=== PATIENT | female | born 1950 | race Caucasian/White ===

== ENCOUNTER → 2016-10-21 | Outpatient (CLI) | payer BC ==
[2015-02-20 12:25] VITALS: BP 110/52
[~2016-10-21] MED LIST: DOCU-109 PO; ESTR1TAB3 PO; NAPR500T3 PO; OMEP40CA5 PO; ONDA4TAB10 SL; OXYC-323 PO; PROP20TA PO; VENTOLIN HFA18 GM INH
--- NOTE | 2016-10-21 14:00 | RAD ---
EXAM: MAMMO JOSE SCREENING BILATERAL HISTORY: Routine Screening. COMPARISON: 10/26/2014 Standard mammographic views are obtained of the bilateral breasts. Additionally three-dimensional jose synthesis images obtained. FINDINGS: The breast parenchyma Is heterogenously dense, which could reduce sensitivity of mammography. Breast parenchyma level III.. Within the right upper outer breast there is a 7 mm well-circumscribed mass identified which may be new when compared to prior examination. IMPRESSION: Within the right breast there is a well-circumscribed mass identified which which may be new when compared to prior examination. Recommend that the patient return for focused ultrasound to further evaluate and assess whether this is solid or cystic in nature. In addition bilateral breast ultrasound was recommended on prior examination from 11/12/2014 but a follow-up is not within the system. Recommend that the patient return for bilateral breast ultrasound to further evaluate the previously identified hypoechoic lesions of the bilateral breasts seen on ultrasound and ensure that there is no growth. BI-RADS CATEGORY: 0 NEED ADD'L IMAGE/PRIOR MAMMO RECOMMENDED FOLLOW-UP: ADD ADDITIONAL IMAGING PQRS compliance statement: Patient information was entered into a reminder system with a target due date for the next mammogram. Mammography is a sensitive method for finding small breast cancers, but it does not detect them all and is not a substitute for careful clinical examination. A negative mammogram does not negate a clinically suspicious finding and should not result in delay in biopsying a clinically suspicious abnormality. "Our facility is accredited by the [employer] Mammography [employer]."
== END | disposition home or self-care (01) ==
LOC: KCIC MAMMO 08:48
PROVIDERS: ATTEND Family Medicine
DX: Z12.31 Encounter for screening mammogram for malignant neoplasm of breast (principal); N63 Unspecified lump in breast
CPT/HCPCS: 77063; G0202; 77067

== ENCOUNTER → 2016-10-29 | Outpatient (CLI) | payer BC ==
[2015-02-20 12:25] VITALS: BP 110/52
--- NOTE | 2016-10-29 09:20 | RAD ---
Bilateral breast ultrasound, 10/29/2016: History: Follow-up breast nodules The mammograms from 10/21/2016 again demonstrated nodularity throughout both breasts. A possible new nodule was noted in the upper outer quadrant. Both breasts were carefully scanned. At the 11:00 location in the right breast there is a 6 x 5 x 7 mm smooth nodule. It demonstrates low level internal echoes and minimal through transmission. This is probably a complicated cyst or fibroadenoma. It demonstrates sonographic characteristics similar to the other nodules in both breasts. Its lack of visibility on older mammograms may have been due to technical factors. There are numerous other small smooth rounded nodules in both breasts as noted on the previous study. These appear to represent a combination of cysts and probable complicated cysts. No enlarging nodules are seen. On the previous study there was a 7 mm nodule at the 2:00 location in the left breast which was noted to be mildly lobulated and perhaps taller than wide in one projection. This nodule is also unchanged, suggesting a benign etiology such as a complicated cyst or fibroadenoma. No suspicious mass or enlarging breast nodule is seen. IMPRESSION: 1. Stable bilateral breast nodules suggesting a benign etiology. 2. The potentially new right breast nodule demonstrates similar sonographic characteristics and is also probably benign. A follow-up targeted right breast ultrasound in 6 months and bilateral mammography at one year is suggested. BI-RADS 3-probably benign findings
== END | disposition home or self-care (01) ==
LOC: KCIC US 07:56
PROVIDERS: ATTEND Family Medicine
DX: R92.8 Other abnormal and inconclusive findings on diagnostic imaging of breast (principal)
CPT/HCPCS: 76641

== ENCOUNTER → 2019-01-18 | Outpatient (CLI) | payer MEDICARE ==
[2015-02-20 12:25] VITALS: BP 110/52
[~2019-01-18] MED LIST changes: -ESTR1TAB3 PO; +NAPR-514 PO; -NAPR500T3 PO; +OMEP40CA45 PO; -OMEP40CA5 PO; -OXYC-323 PO; +OXYC1TAB15 PO; +PREMPRO 0.3 MG1 EACH PO
--- NOTE | 2019-01-18 18:46 | KCIC ---
BILATERAL SCREENING MAMMOGRAM, 3-D History: Routine screening. Comparison: Bilateral mammogram October 21, 2016. Bilateral breast ultrasound October 29, 2016. Technique: MLO and CC digital tomosynthesis (3D) images obtained. Radiologist reviewed these images on dedicated workstation. Findings: Breast Tissue Density C : The breasts are heterogeneously dense, which may obscure small masses. There are small bilateral well-circumscribed, isodense masses that are unchanged from prior study. Masses have previously been evaluated with ultrasound and are likely cysts. There are no dominant masses, suspicious microcalcifications, or architectural distortion. IMPRESSION: No mammographic evidence of malignancy. Recommend routine screening. BI-RADS category 2: Benign findings. The images were reviewed with computer-aided detection. Patient information is entered into reminder system with a target due date for the next screening mammogram. Mammography is the most sensitive method for finding small breast cancers, but it does not detect them all and is not a substitute for careful clinical examination. A negative mammogram does not negate a clinically suspicious finding and should not result in delay in biopsying a clinically suspicious abnormality. "Our facility is accredited by the [employer] Mammography [employer]." Electronically signed by: Manuel Katz MD (01/18/2019 6:43 PM) [id number]
== END | disposition home or self-care (01) ==
LOC: KCIC MAMMO 09:51
PROVIDERS: ATTEND Family Medicine
DX: Z12.31 Encounter for screening mammogram for malignant neoplasm of breast (principal); N63.20 Unspecified lump in the left breast, unspecified quadrant; N63.10 Unspecified lump in the right breast, unspecified quadrant
CPT/HCPCS: 77063; 77067